=== PATIENT | male | born 1990 ===

== ENCOUNTER 2019-04-24 12:54 | Emergency (ER) | payer OTHER ==
[~2019-04-24] VITALS: Ht 180.3 cm; Wt 90.0 kg
[2019-04-24 13:36] VITALS: BP 133/86
[2019-04-24] MEDS ORDERED: IBUP-1984 PO (14:53)
[2019-04-24] MEDS ORDERED: CYCL-1 PO (14:53)
[2019-04-24] MEDS ORDERED: ibuprofen tablet 400 MG TABLET PO ONE (14:55)
== END 2019-04-24 15:13 | disposition home or self-care (01) ==
LOC: ER 12:55
DX: S39.012A Strain of muscle, fascia and tendon of lower back, initial encounter (principal); M62.830 Muscle spasm of back; V49.59XA Passenger injured in collision with other motor vehicles in traffic accident, initial encounter; Y93.89 Activity, other specified; Y92.413 State road as the place of occurrence of the external cause; Y99.9 Unspecified external cause status
CPT/HCPCS: 99283